=== PATIENT | female | born 1960 | race Caucasian/White ===

== ENCOUNTER 2016-11-14 15:18 | Emergency (ER) | payer BC | END 2016-11-14 15:42 | disposition home or self-care (01) | LOC: ER 15:18 | DX: S90.424A Blister (nonthermal), right lesser toe(s), initial encounter (principal); X58.XXXA Exposure to other specified factors, initial encounter; Z79.899 Other long term (current) drug therapy; Z88.0 Allergy status to penicillin; Z88.1 Allergy status to other antibiotic agents; Z88.5 Allergy status to narcotic agent | CPT/HCPCS: 99070; 99282 ==